=== PATIENT | male | born 1965 | race African-American/Black ===

== ENCOUNTER 2023-06-26 07:03 | Emergency (ER) | payer OTHER ==
[2023-06-26 07:17] VITALS: BP 135/87; PULSE 61; RESP 20; TEMP 98.3; BMI 29.7
[2023-06-26] MEDS ORDERED: ACETAMINOPHEN 500 MG TABLET (FP) PO ONE (08:04)
[2023-06-26] MEDS ORDERED: LIDOCAINE 5% TOPICAL PATCH TP ONE (08:04)
[2023-06-26] MEDS ORDERED: KETOROLAC TROMETHAMINE 30 MG/1 ML VIAL IM ONE (08:04)
[2023-06-26] MEDS ORDERED: KETOROLAC TROMETHAMINE 30 MG/1 ML VIAL ONE (08:09)
[2023-06-26] MEDS ORDERED: LIDOCAINE 5% TOPICAL PATCH ONE (08:09)
[2023-06-26] MEDS ORDERED: ACETAMINOPHEN 500 MG TABLET (FP) ONE (08:14)
[2023-06-26] MEDS ORDERED: METOCLOPRAMIDE HCL INJECTION 10 MG/2 ML VIAL IVPB ONE (09:12)
[2023-06-26] MEDS ORDERED: SODIUM CHLORIDE 0.9% 500 ML INFUS.BAG IV ONE (09:13)
[2023-06-26] MEDS ORDERED: METOCLOPRAMIDE HCL INJECTION 10 MG/2 ML VIAL ONE (09:56)
[2023-06-26] MEDS ORDERED: MAGNESIUM SULF 50% (8.12 MEQ/2 ML-1 GM VIAL) IVPB ONE (10:46)
[2023-06-26] MEDS ORDERED: DEXAMETHASONE SOD PHOSPHATE 4 MG/1 ML VIAL IVPUSH ONE (10:47)
[2023-06-26] MEDS ORDERED: MAGNESIUM SULFATE IN WATER 2 GM/50 ML IVPB IVPB ONE (11:13)
[2023-06-26] MEDS ORDERED: DEXAMETHASONE SOD PHOSPHATE 4 MG/1 ML VIAL ONE (11:13)
[2023-06-26] MEDS ORDERED: LIDOCAINE PATCH REMOVAL MC ONE (22:00)
== END 2023-06-26 14:25 | disposition home or self-care (01) ==
LOC: JER 07:03
PROC: 3E033GC Introduction of Other Therapeutic Substance into Peripheral Vein, Percutaneous Approach (ICD-10-PCS; principal; 2023-06-26)
PROC: 3E033GC Introduction of Other Therapeutic Substance into Peripheral Vein, Percutaneous Approach (ICD-10-PCS; 2023-06-26)
PROC: 3E033GC Introduction of Other Therapeutic Substance into Peripheral Vein, Percutaneous Approach (ICD-10-PCS; 2023-06-26)
PROC: 3E0233Z Introduction of Anti-inflammatory into Muscle, Percutaneous Approach (ICD-10-PCS; 2023-06-26)
DX: G43.809 Other migraine, not intractable, without status migrainosus (principal); H04.209 Unspecified epiphora, unspecified side
CPT/HCPCS: 70450-TC; 99284-25